=== PATIENT | female | born 1960 | race Caucasian/White ===

== ENCOUNTER 2022-03-18 13:16 | Outpatient (CLI) | payer OTHER, SELFPAY ==
[2022-03-18 13:27] LABS: Hematocrit 44.1 % (35.0-49.0); Hemoglobin 13.9 g/dL (12.0-15.0); Mean Corpuscular HGB Conc 31.5 g/dL (32.0-36.0); Mean Corpuscular Hemoglobin 28.3 pg (27.0-31.0); Mean Corpuscular Volume 89.8 fL (78.0-102.0); Mean Platelet Volume 10.1 fl (9.2-11.8); Platelet Count Result 315 K/mm3 (150-420); Red Blood Count 4.91 M/mm3 (4.20-5.40); White Blood Count 7.8 K/mm3 (4.8-10.8)
[2022-03-18 14:00] LABS: Albumin Level 3.5 g/dL (3.4-5.0); Alkaline Phosphatase 111 U/L (46-116); Anion Gap 5 mmol/L (8-16); Aspartate Amino Transferase 16 U/L (15-37); Bilirubin,Total 0.4 mg/dL (0.00-1.00); Blood Urea Nitrogen 15 mg/dL (7-18); Calcium 9.3 mg/dL (8.5-10.1); Carbon Dioxide 30 mmol/L (21-32); Chloride 107 mmol/L (98-108); Cholesterol 242 mg/dL (0-200); Estimated Glomerular Filt Rate 55; Glucose 110 mg/dL (70-99); HDL Direct 60 mg/dL (40-60); LDL Cholesterol Calculated 150 mg/dL (<130); Osmolality Calculated 295 mOsm/kg (285-295); Potassium 4.4 mmol/L (3.5-5.1); Sodium 142 mmol/L (136-145); Total Protein 6.8 g/dL (6.4-8.2); Triglycerides 160 mg/dL (0-150)
[2022-03-18 14:08] LABS: Alanine Aminotransferase 28 U/L (14-59)
== END 2022-03-18 13:17 | disposition home or self-care (01) ==
LOC: CHSLAB 13:19
PROVIDERS: PCP Family Medicine; Visit Provider Family Medicine
DX: Z00.00 Encounter for general adult medical examination without abnormal findings (principal)
CPT/HCPCS: 36415; 80053; 80061; 85027

== ENCOUNTER 2022-03-26 13:40 | Outpatient (CLI) | payer OTHER, SELFPAY ==
--- NOTE | ~2022-03-26 | DEXA_ITS ---
Bone Density Report Name: FRAKNLYN LEIVA Age: 61 Sex: Female Ethnicity: White Date of : 1960 Indication: postmenopausal; screening for osteoporosis; height loss; hysterectomy; Referring Provider: Yonathan Menendez Study: Bone densitometry was performed. Exam Date: March 26, 2022 Accession number: [id number] Bone Density: Region BMD T-score Z-score Classification AP Spine(L1-L4) 0.854 -1.8 -0.1 Osteopenia Femoral Neck (Left) 0.572 -2.5 -1.0 Osteoporosis Total Hip (Left) 0.812 -1.1 0.1 Osteopenia Femoral Neck (Right) 0.649 -1.8 -0.3 Osteopenia Total Hip (Right) 0.779 -1.3 -0.2 Osteopenia Femoral Neck Mean 0.610 -2.2 -0.7 Osteopenia Total Hip Mean 0.795 -1.2 0.0 Osteopenia World Health Organization criteria for BMD impression classify patients as: Normal (T-score at or above -1.0), Osteopenia (T-score between -1.0 and -2.5), or Osteoporosis (T-score at or below -2.5). 10-year Fracture Risk: FRAX not reported because: Some T-score for Spine Total or Hip Total or Femoral Neck at or below -2.5 Clinical Information Provided by Patient: Has the following medical conditions: Hysterectomy Patient maximum height was 66 Menopause Age: 53 Does not regularly consume dairy products Drinks caffeinated beverages Onset of menses at age 12 Number of children 2 Impression: The patient has osteoporosis, based on the Left Femoral Neck T-score. Discussion: INCREASED RISK OF FRACTURE. BONE DENSITY IS UNDESIRABLY LOW AT ONE OR MORE SKELETAL SITES, CONSISTENT WITH POSTMENOPAUSAL OSTEOPOROSIS. This patient's lowest T-score meets the World Health Organization's (WHO) criteria for osteoporosis at one or more sites (T-score -2.5 or below). In untreated patients, the risk of osteoporotic fracture increases approximately two-fold for each 1.0 SD decrease in T-score. Low bone density is not the only risk factor for fracture; also consider factors such as patient's age, frailty or poor health, risk of falling, risk of injury, previous osteoporotic fracture, family history of osteoporosis, cigarette smoking, low body weight, etc. Not everyone with low bone mineral density has osteoporosis; osteomalacia and other metabolic bone disorders should also be considered. Patients who have osteoporosis should be evaluated for specific diseases and conditions (secondary causes) that may cause or contribute to bone loss. The [place] [employer] (AACE) and National Osteoporosis Foundation (NOF) recommend pharmacologic intervention for all postmenopausal women whose T-score is in this range. The patient should follow a healthful lifestyle (good nutrition with adequate calcium and vitamin D, and appropriate weight-bearing exercise). Follow-Up: Consider a repeat BMD and Vertebral Fractur
== END 2022-03-26 13:41 | disposition home or self-care (01) ==
LOC: CHSIMG 13:42
PROVIDERS: PCP Family Medicine; Visit Provider Family Medicine
DX: Z00.00 Encounter for general adult medical examination without abnormal findings (principal); Z78.0 Asymptomatic menopausal state
CPT/HCPCS: 77080

== ENCOUNTER 2024-03-18 11:42 | Outpatient (CLI) | payer MEDICARE, SELFPAY ==
[2024-03-18 12:22] LABS: Basophils Absolute Auto 0.05 K/mm3 (0.00-0.10); Basophils Percent Auto 0.8 % (0.0-1.0); Eosinophils Absolute Auto 0.28 K/mm3 (0.02-0.50); Eosinophils Percent Auto 4.2 % (1.0-6.0); Hematocrit 46.2 % (35.0-42.0); Hemoglobin 14.5 g/dL (11.7-13.8); Immature Granulocyte Absolute 0.02 K/mm3 (0.00-0.00); Immature Granulocyte Percent A 0.3 % (0.0-0.0); Lymphocytes Percent Auto 25.7 % (18.0-42.0); Mean Corpuscular HGB Conc 31.4 g/dL (32-36); Mean Corpuscular Hemoglobin 27.9 pg (27.0-31.0); Mean Corpuscular Volume 88.8 fL (78.0-102.0); Mean Platelet Volume 9.9 fl (9.2-11.8); Monocytes Percent Auto 7.6 % (2.0-11.0); Neutrophils Absolute Auto 4.07 K/mm3 (1.70-7.20); Neutrophils Percent Auto 61.4 % (50.0-70.0); Platelet Count Result 296 K/mm3 (150-420); Red Cell Distribution Width 13.8 % (11.6-14.4); White Blood Count 6.6 K/mm3 (4.8-10.8)
[2024-03-18 12:31] LABS: Hemoglobin A1C 5.5 % (<5.7)
[2024-03-18 13:24] LABS: Alanine Aminotransferase 25 U/L (14-59); Albumin Level 3.8 g/dL (3.4-5.0); Alkaline Phosphatase 97 U/L (46-116); Anion Gap 9 mmol/L (4-12); Aspartate Amino Transferase 17 U/L (15-37); Bilirubin,Total 0.5 mg/dL (0.00-1.00); Blood Urea Nitrogen 18 mg/dL (7-18); Calcium 9.4 mg/dL (8.5-10.1); Carbon Dioxide 28 mmol/L (21-32); Chloride 103 mmol/L (98-108); Cholesterol 239 mg/dL (0-200); Estimated Glomerular Filt Rate > 60; Glucose 96 mg/dL (70-99); HDL Direct 63 mg/dL (40-60); LDL Cholesterol Calculated 157 mg/dL (<130); Osmolality Calculated 291 mOsm/kg (285-295); Potassium 4.6 mmol/L (3.5-5.1); Sodium 140 mmol/L (136-145); Total Protein 7.4 g/dL (6.4-8.2); Triglycerides 96 mg/dL (0-150)
== END 2024-03-18 11:43 | disposition home or self-care (01) ==
PROVIDERS: PCP Nurse Practitioner Family; Visit Provider Nurse Practitioner Family
DX: Z13.1 Encounter for screening for diabetes mellitus (principal); E78.5 Hyperlipidemia, unspecified
CPT/HCPCS: 36415; 80053; 80061; 83036; 85025

== ENCOUNTER 2024-03-30 07:34 | Outpatient (CLI) | payer MEDICARE, SELFPAY ==
--- NOTE | ~2024-03-30 | DEXA_ITS ---
Bone Density Report Name: FRANKLYN LEIVA Age: 63 Sex: Female Ethnicity: White Date of : 1960 Indication: osteopenia; monitoring treatment; height loss; asthma or emphysema; hysterectomy; Referring Provider: KIA SPRING Study: Bone densitometry was performed. Exam Date: March 30, 2024 Accession number: [id number] Bone Density: Region BMD T-score Z-score Classification AP Spine(L1-L4) 0.900 -1.3 0.5 Osteopenia Femoral Neck (Left) 0.583 -2.4 -0.8 Osteopenia Total Hip (Left) 0.789 -1.3 0.0 Osteopenia Femoral Neck (Right) 0.621 -2.1 -0.5 Osteopenia Total Hip (Right) 0.844 -0.8 0.5 Normal Femoral Neck Mean 0.602 -2.2 -0.7 Osteopenia Total Hip Mean 0.817 -1.0 0.2 Normal World Health Organization criteria for BMD impression classify patients as: Normal (T-score at or above -1.0), Osteopenia (T-score between -1.0 and -2.5), or Osteoporosis (T-score at or below -2.5). 10-year Fracture Risk: FRAX not reported because: Treated for osteoporosis Previous Exams: Region Exam Age BMD T-score BMD Change BMD Change Date g/cm2 vs Baseline vs Previous AP Spine (L1-L4) 03/30/2024 63 0.900 -1.3 0.046 (5.4%)* 0.046 (5.4%)* 03/26/2022 61 0.854 -1.8 Total Hip(Left) 03/30/2024 63 0.789 -1.3 -0.023 (-2.8%) -0.023 (-2.8%) 03/26/2022 61 0.812 -1.1 Total Hip(Right) 03/30/2024 63 0.844 -0.8 0.065 (8.4%)* 0.065 (8.4%)* 03/26/2022 61 0.779 -1.3 *Denotes significance at 95% confidence level, LSC for AP Spine = 0.022 g/cm2, LSC for Total Hip = 0.027 g/cm2 Clinical Information Provided by Patient: Is being treated for osteoporosis Has used the following medications: Vitamin D Has the following medical conditions: Asthma or Emphysema, Hysterectomy Patient maximum height was 67.0 Menopause Age: 53 Does not regularly consume dairy products Drinks caffeinated beverages Onset of menses at age 12 Number of children 2 Impression: The patient has low bone mass, based on the Left Femoral Neck T-score. No significant bone loss was observed. Discussion: PATIENT UNDER TREATMENT WITH NO SIGNIFICANT BMD LOSS SINCE LAST EXAM. In an untreated patient, BMD typically declines with age. A lack of decline or gain is usually a sign that treatment is efficacious and fracture risk is reduced. It is important to ask patients whether they are taking their medications and to encourage continued and appropriate compliance with their ost
== END 2024-03-30 07:35 | disposition home or self-care (01) ==
LOC: CHSIMG 07:36
PROVIDERS: PCP Family Medicine; Visit Provider Nurse Practitioner Family
DX: Z78.0 Asymptomatic menopausal state (principal); M85.89 Other specified disorders of bone density and structure, multiple sites
CPT/HCPCS: 77080

== ENCOUNTER 2024-04-16 14:29 | Outpatient (NON) | payer MEDICARE, SELFPAY | END 2024-04-16 14:30 | disposition home or self-care (01) | LOC: CHSLAB 14:31 | PROVIDERS: Visit Provider Nurse Practitioner Family | DX: Z12.4 Encounter for screening for malignant neoplasm of cervix (principal); Z11.51 Encounter for screening for human papillomavirus (HPV); Z11.8 Encounter for screening for other infectious and parasitic diseases | CPT/HCPCS: 87624; 88175; G0145 ==

== ENCOUNTER 2024-07-13 14:19 | Outpatient (CLI) | payer MEDICARE, SELFPAY ==
[2024-07-13 15:31] LABS: Cholesterol 243 mg/dL (0-200); HDL Direct 70 mg/dL (40-60); LDL Cholesterol Calculated 147 mg/dL (<130); Triglycerides 131 mg/dL (0-150)
[2024-07-13 15:47] LABS: Thyroid Stimulating Hormone Reflex 1.18 u/IU/mL (0.36-3.74)
== END 2024-07-13 14:20 | disposition home or self-care (01) ==
PROVIDERS: PCP Nurse Practitioner Family; Visit Provider Nurse Practitioner Family
DX: E78.5 Hyperlipidemia, unspecified (principal)
CPT/HCPCS: 36415; 80061; 84443

== ENCOUNTER 2024-07-13 15:31 | Outpatient (NON) | payer MEDICARE, SELFPAY | END 2024-07-13 15:32 | disposition home or self-care (01) | PROVIDERS: Visit Provider Nurse Practitioner Family | DX: L08.9 Local infection of the skin and subcutaneous tissue, unspecified (principal) | CPT/HCPCS: 87070; 87075; 87181; 87205 ==